=== PATIENT | female | born 1995 | race American Indian/Alaskan Native ===

== ENCOUNTER 2018-03-07 00:21 | Emergency (ER) | payer MEDICAID ==
[2018-03-07 00:57] VITALS: PULSE 85; BMI 22.8
--- NOTE | 2018-03-07 01:17 | C.PDOC ---
History Of Present Illness 22 year old female presents to the ED with depression caused by recent family member loss. Patient has a history of depression but is not taking any medication for it. She denies suicidal and homicidal ideation. Time Seen by Provider: 03/07/18 00:44 Chief Complaint (Nursing): Psychiatric Evaluation History Per: Patient History/Exam Limitations: no limitations Onset/Duration Of Symptoms: Days Current Symptoms Are (Timing): Still Present Suicide/Self Injury Attempted (Context): None Modifying Factor(s): None Associated Symptoms: Depression. denies: Suicidal Thoughts, Other (homicidal ideation) Recent travel outside of the [place]: No Past Medical History Reviewed: Historical Data, Nursing Documentation, Vital Signs Vital Signs: Last Vital Signs Temp 98.1 F 03/07/18 00:47 Pulse 85 03/07/18 00:47 Resp 18 03/07/18 00:47 BP 120/79 03/07/18 00:47 Pulse Ox 99 03/07/18 00:47 - Medical History PMH: Depression Family History: States: No Known Family Hx - Social History Hx Alcohol Use: No Hx Substance Use: No - Immunization History Hx Tetanus Toxoid Vaccination: No Hx Influenza Vaccination: No Hx Pneumococcal Vaccination: No Review Of Systems Constitutional: Negative for: Fever Respiratory: Negative for: Cough Gastrointestinal: Negative for: Nausea, Vomiting Psych: Positive for: Depression. Negative for: Suicidal ideation, Other (homicidal ideation) Physical Exam - Physical Exam Appears: Non-toxic, No Acute Distress, Other (Tearful) Skin: Normal Color, Warm, Dry Head: Atraumatic, Normacephalic Eye(s): bilateral: Normal Inspection Oral Mucosa: Moist Neck: Normal ROM, Supple Chest: Symmetrical, No Tenderness Cardiovascular: Rhythm Regular Respiratory: Normal Breath Sounds, No Rales, No Rhonchi, No Wheezing Gastrointestinal/Abdominal: Normal Exam, Soft, No Tenderness Extremity: Normal ROM (x4) Extremity: Bilateral: Atraumatic Neurological/Psych: Oriented x3, Normal Speech ED Course And Treatment O2 Sat by Pulse Oximetry: 99 (RA) Pulse Ox Interpretation: Normal Medical Decision Making Medical Decision Makin22 year old female presents to the ED with depression. 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 Per PES patient is stable for discharge. Disposition Counseled Patient/Family Regarding: Diagnosis, Need For Followup - Disposition Referrals: [place] [facility] [Outside] Disposition: HOME/ ROUTINE Disposition Time: 02:11 Condition: STABLE Instructions: Depression, Adult (DC) Forms: [facility] (American) - POA Present On Arrival: None - Clinical Impression Clinical Impression: Depressive episode - PA / [employer] / Resident Statement MD/DO has reviewed & agrees with the documentation as recorded. - Scribe Statement The provider has reviewed the documentation as recorded by the Scribe (George Valadez) All medical record entries made by the Scribe were at my direction and personally dictated by me. I have reviewed the chart and agree that the record accurately reflects my personal performance of the history, physical exam, medical decision making, and the department course for this patient. I have also personally directed, reviewed, and agree with the discharge instructions and disposition.
[2018-03-07 02:20] VITALS: BP 109/69; RESP 20; TEMP 97.8
[2018-03-07 02:56] VITALS: O2SAT 99
== END 2018-03-07 02:20 | disposition home or self-care (01) ==
LOC: C.ER 00:21
DX: F32.9 Major depressive disorder, single episode, unspecified (principal)